=== PATIENT | male | born 1965 | race African-American/Black ===

== ENCOUNTER 2019-01-06 16:58 | Inpatient (IN) | payer MEDICAID, OTHER ==
[~2019-01-06] VITALS: Ht 188 cm; Wt 140.8 kg
[2019-01-06] MEDS ORDERED: DILTIAZEM HCL 25 MG/5 ML VIAL IV ONE (17:45)
[2019-01-06] MEDS ORDERED: ASPirin 81 mg TAB PO ONE (17:45)
[2019-01-06 17:50] LABS: Basophils # (auto) 0.1 uL; Basophils % (auto) 1.2 % (0.0-2.0); Eosinophils # (auto) 0 uL; Eosinophils % (auto) 0.8 % (0.0-7.0); Hematocrit 45.6 % (41.0-53.0); Hemoglobin 15.1 g/dL (13.5-17.5); Lymphocytes # (auto) 1.1 uL; Lymphocytes % (auto) 23.1 % (10.0-50.0); Mean Corpuscular Hemoglobin 28.3 pg (28.0-32.0); Mean Corpuscular Hgb Conc. 33.1 g/dL (32.0-36.0); Mean Corpuscular Volume 85.6 fL (80.0-100.0); Monocytes # (auto) 0.4 uL; Monocytes % (auto) 8.3 % (0.0-12.0); Neutrophils # (auto) 3.1 uL; Neutrophils % (auto) 66.6 % (37.0-80.0); Nucleated Red Blood Cells % 0.1 %; Platelet Count (auto) 256 10^3/uL (140-450); Red Blood Cells 5.32 10^6/uL (4.5-5.90); Red Cell Distribution Width 14.8 % (11.8-14.3); White Blood Cell 4.7 10^3/uL (4.4-10.8)
[2019-01-06 18:04] LABS: INR 0.99 (0.9-1.15); Partial Thromboplastin Time 22.2 sec (23.64-32.05)
[2019-01-06 18:07] LABS: Alanine Aminotransferase 50 U/L (16-61); Albumin 3.8 g/dL (3.4-5.0); Anion Gap 12 (5-15); Aspartate Aminotransferase 26 U/L (15-37); BUN/Creatinine Ratio 10.3; Blood Urea Nitrogen 12 mg/dL (7-18); Calcium 8.5 mg/dL (8.5-10.1); Carbon Dioxide 22 mmol/L (21-32); Chloride 110 mmol/L (98-107); GFR African American 85 mL/min; GFR Non-African American 70 mL/min; Glucose 122 mg/dL (74-106); Magnesium 2.2 mg/dL (1.6-2.6); Potassium 3.6 mmol/L (3.5-5.1); Sodium 144 mmol/L (136-145)
[2019-01-06 18:12] LABS: Alkaline Phosphatase 101 U/L (45-117); Bilirubin, Total 0.5 mg/dL (0.2-1.0)
[2019-01-06] MEDS ORDERED: HYDROcodone-ACET 5/325MG TAB PO PRN (20:00)
[2019-01-06] MEDS ORDERED: ONDANSETRON HCL 4 MG/2 ML VIAL IV PRN (20:00)
[2019-01-06] MEDS ORDERED: NITROGLYCERIN 0.4 MG SL TAB SL PRN (20:00)
[2019-01-06] MEDS ORDERED: MORPHINE SULF INJ 2 MG/ML SYRINGE 1ML IV PRN ×2 (20:00)
[2019-01-06] MEDS ORDERED: ACETAMINOPHEN 500 MG TAB PO PRN (20:00)
[2019-01-06] MEDS: METOPROLOL TARTRATE 25 MG TAB PO SCH (21:00)
[2019-01-06] MEDS: ATORVASTATIN 20 MG TAB PO SCH (22:14)
[2019-01-07] MEDS ORDERED: cloNIDine HCL 0.1 MG TAB PO ONE (05:15)
[2019-01-07 06:09] LABS: Basophils # (auto) 0.1 uL; Basophils % (auto) 1.9 % (0.0-2.0); Eosinophils # (auto) 0 uL; Eosinophils % (auto) 0.3 % (0.0-7.0); Hemoglobin 14.5 g/dL (13.5-17.5); Lymphocytes # (auto) 1.7 uL; Lymphocytes % (auto) 35.1 % (10.0-50.0); Mean Corpuscular Hemoglobin 28.5 pg (28.0-32.0); Mean Corpuscular Hgb Conc. 33.1 g/dL (32.0-36.0); Mean Corpuscular Volume 86.2 fL (80.0-100.0); Monocytes # (auto) 0.4 uL; Monocytes % (auto) 8.1 % (0.0-12.0); Neutrophils # (auto) 2.7 uL; Neutrophils % (auto) 54.6 % (37.0-80.0); Nucleated Red Blood Cells % 0.1 %; Platelet Count (auto) 246 10^3/uL (140-450); Red Cell Distribution Width 14.8 % (11.8-14.3)
[2019-01-07 06:13] LABS: Cholesterol 185 mg/dL (< 200); Triglycerides 102 mg/dL (< 150)
[2019-01-07 06:15] LABS: HDL Cholesterol 47 mg/dL (40-59); LDL Cholesterol 131 mg/dL (< 100)
[2019-01-07 06:17] LABS: Anion Gap 11 (5-15); BUN/Creatinine Ratio 12.2; Blood Urea Nitrogen 14 mg/dL (7-18); Calcium 8.4 mg/dL (8.5-10.1); Carbon Dioxide 23 mmol/L (21-32); Chloride 110 mmol/L (98-107); GFR African American 86 mL/min; GFR Non-African American 71 mL/min; Glucose 107 mg/dL (74-106); INR 1.04 (0.9-1.15); Partial Thromboplastin Time 30.9 sec (23.64-32.05); Potassium 3.7 mmol/L (3.5-5.1); Sodium 144 mmol/L (136-145)
[2019-01-07] MEDS: ASPirin-EC 81 mg tab PO SCH (09:11)
[2019-01-07] MEDS: METOPROLOL TARTRATE 25 MG TAB PO SCH (09:11)
[2019-01-07] MEDS: FAMOTIDINE 20 MG TAB PO SCH (09:11)
[2019-01-07] MEDS: LISINOPRIL 10 MG TAB PO SCH (09:12)
[2019-01-07] MEDS ORDERED: ENOXAPARIN SOD 100 MG/1 ML SYRINGE SC SCH (10:00)
[2019-01-07] MEDS: ENOXAPARIN SOD 150 MG/1 ML SYRINGE SC SCH ×2 (10:31→21:47)
[2019-01-07] MEDS: AMIODARONE HCL 200 MG TAB PO SCH ×2 (10:31→21:46)
[2019-01-07] MEDS: CARVEDILOL 3.125 MG TAB PO SCH ×2 (12:05→21:47)
--- NOTE | 2019-01-07 18:20 | NUR ---
Telemetry admit from ER JAMES LIEBERMAN admitted to Telemetry unit after SBAR received. Patient oriented to Sudha Faustin primary RN, unit, room, bed, and unit policies regarding patient care and visiting hours. Patient now on continuous telemetry monitoring, tele box #22 . Patient weighed by bed scale and encouraged to call if they need something. All questions and concerns addressed, patient verbalized understanding. Instructed patient on POC, fall precautions and to call for assistance. Patient verbalized understanding. Fall precautions in place with call light within reach.
[2019-01-07 18:38] VITALS: BP 134/99
--- NOTE | 2019-01-07 18:59 | NUR ---
Closing note patient resting in bed with even and unlabored respirations, no distress noted. Fall precautions in place with call light within reach.
--- NOTE | 2019-01-07 19:18 | NUR ---
Care endorsed to SAMMI Thompson.
--- NOTE | 2019-01-07 19:25 | NUR ---
OPENING NOTE Received report from SAMMI Rooney. Patient is A&O X's 4 with no s/s of distress. Patient reports no pain. Educated patient on POC and to use call light when in need of assistance. Patient verbalized understanding. Bed is in lowest/locked position with side rails up X's 2 and call light is within reach of patient. Will continue to monitor for changes and round hourly/PRN.
[2019-01-07] MEDS: ATORVASTATIN 20 MG TAB PO SCH (21:46)
[2019-01-07 22:00] VITALS: BP 134/99
--- NOTE | 2019-01-08 05:00 | NUR ---
PAGED HOSPITALIST Patient's blood pressure at 160/105.
[2019-01-08 05:21] VITALS: BP 160/105
[2019-01-08] MEDS ORDERED: cloNIDine HCL 0.1 MG TAB PO ONE (05:45)
--- NOTE | 2019-01-08 05:46 | NUR ---
RECEIVED CALL BACK FROM HOSPITALIST New orders received. Will continue patient care
--- NOTE | 2019-01-08 06:09 | NUR ---
ASSESSMENT BP 134/110 HR 87 O2 97 PATIENT REPORTS NO CHEST PAIN/PALPITATIONS, HE STATED THAT HE WAS MOVING AROUND A LOT AT THIS TIME WHEN NASIM CALLED THAT HEART RATE INCREASED TO ABOUT 130. WILL HOLD ONE TIME DOSE OF CLONIDINE FOR NOW, SINCE BLOOD PRESSURE IS AT 134/110. WILL CONTINUE TO MONITOR
--- NOTE | 2019-01-08 06:27 | NUR ---
HEART RATE Patient's heart rate increased to 130's when ambulating to the bathroom. Patient's heart rate decreased down to 110's and 90's when at rest. Will continue to monitor heart rate. Patient is asymptomatic Addendum: 01/08/19 at 0644 by KI NAIK RN RN oxygen level was also at 93% on room air when patient returned back into bed. Within a short time, it increased to 97% on room air with the heart rate slowly decreasing. Educated patient to use NC when ambulating to bathroom to determine if this can help prevent an increased HR. Patient verbalized understanding. NC at bedside and connected to O2 at 2L
[2019-01-08 08:00] VITALS: BP_SYST 147; BP_SYST 165; BP_DIAS 106; BP_DIAS 112
[2019-01-08] MEDS: AMIODARONE HCL 200 MG TAB PO SCH ×2 (09:45→21:45)
[2019-01-08] MEDS: CARVEDILOL 3.125 MG TAB PO SCH (09:45)
[2019-01-08] MEDS: ASPirin-EC 81 mg tab PO SCH (09:45)
[2019-01-08] MEDS: LISINOPRIL 10 MG TAB PO SCH (09:46)
[2019-01-08] MEDS: FAMOTIDINE 20 MG TAB PO SCH (09:46)
[2019-01-08] MEDS: ENOXAPARIN SOD 150 MG/1 ML SYRINGE SC SCH ×2 (09:47→21:46)
[2019-01-08] MEDS ORDERED: FUROSEMIDE 40 MG TAB PO SCH (10:00)
[2019-01-08] MEDS ORDERED: POTASSIUM CHL 20 Meq TABLET PO SCH (10:00)
[2019-01-08 12:00] VITALS: BP 134/93
[2019-01-08 17:00] VITALS: BP 147/85
--- NOTE | 2019-01-08 19:30 | NUR ---
Opening Shift Note: A&Ox4, resting in bed. Room air, pain level 0/10, and ambulates independently without assistive devices. Bed locked in lowest position, call light within reach, and side rails up x2. IV 20 left forearm IID inserted on 01/06/19. Skin intact. POC discussed and questions answered. Will continue to round prn.
[2019-01-08] MEDS: ATORVASTATIN 20 MG TAB PO SCH (21:45)
[2019-01-08] MEDS: CARVEDILOL 12.5 MG TAB PO SCH (21:45)
[2019-01-08 22:00] VITALS: BP 138/100
[2019-01-09 04:56] VITALS: BP 166/99
--- NOTE | 2019-01-09 05:01 | NUR ---
Page sent to station jailer hospitalist: Patient blood pressure is 166/99. No prn blood pressure medications available at this time. Page sent for antihypertensive.
[2019-01-09] MEDS: CARVEDILOL 12.5 MG TAB PO SCH ×2 (06:00→21:48)
--- NOTE | 2019-01-09 07:30 | NUR ---
Opening Shift Note Assumed care of patient, awake, alert, and oriented x4. No S/S of distress/SOB or pain. IV 20 gauge is in left forearm and is asymptomatic, intact, patent, and saline locked. Bed is locked and in lowest position and call light is within reach. Instructed on POC and to call for assist PRN, and patient verbalized understanding. Will continue to monitor for changes Q1hr and PRN.
[2019-01-09 09:00] VITALS: BP 167/108
[2019-01-09] MEDS ORDERED: LISINOPRIL 20 MG TAB PO SCH (10:00)
[2019-01-09] MEDS: FAMOTIDINE 20 MG TAB PO SCH (10:01)
[2019-01-09] MEDS: FUROSEMIDE 40 MG TAB PO SCH (10:01)
[2019-01-09] MEDS: POTASSIUM CHL 20 Meq TABLET PO SCH ×2 (10:01→21:48)
[2019-01-09] MEDS: ASPirin-EC 81 mg tab PO SCH (10:02)
[2019-01-09] MEDS: AMIODARONE HCL 200 MG TAB PO SCH ×2 (10:02→21:47)
[2019-01-09] MEDS: ENOXAPARIN SOD 150 MG/1 ML SYRINGE SC SCH ×2 (10:04→21:48)
[2019-01-09 12:54] LABS: BUN/Creatinine Ratio 12.1; Calcium 8.7 mg/dL (8.5-10.1); Potassium 3.4 mmol/L (3.5-5.1)
[2019-01-09 13:00] VITALS: BP 149/107
--- NOTE | 2019-01-09 14:00 | NUR ---
Dr. Sykes, Hospitalist, at bedside. New orders received.
[2019-01-09] MEDS ORDERED: DEXTROSE (50%) 50ML SYRG IV PRN (15:00)
[2019-01-09] MEDS ORDERED: hydrALAZINE HCL 20 MG/ML VL IV PRN (15:00)
[2019-01-09 17:00] VITALS: BP 145/90
[2019-01-09] MEDS: InsuLIN REG 1unit/0.01ml Soln (100units/ml) SC SCH ×2 (17:00→21:59)
[2019-01-09] MEDS: ACCU-CHEK COMFORT CURVE STRIP VI SCH ×2 (17:19→21:59)
--- NOTE | 2019-01-09 20:00 | NUR ---
Drug screen sample sent to lab via [employer] system.
[2019-01-09 21:10] LABS: Amphetamine Screen, Urine NEGATIVE (NEGATIVE); Barbiturate Scree,Urine NEGATIVE (NEGATIVE); Benzodiazephine Screen, Urine NEGATIVE (NEGATIVE); Cannabinoid Screen, Urine NEGATIVE (NEGATIVE); Cocaine Screen, Urine NEGATIVE (NEGATIVE); Opiate Scree,Urine NEGATIVE (NEGATIVE); Phencyclidine Screen, Urine NEGATIVE (NEGATIVE)
[2019-01-09 21:12] LABS: Alcohol, Urine < 3.0 mg/dL (0-5)
[2019-01-09] MEDS: SACUBITRIL-VALSARTAN 24mg/26mg TAB PO SCH (21:48)
[2019-01-09] MEDS: ATORVASTATIN 20 MG TAB PO SCH (21:48)
[2019-01-09 22:00] VITALS: BP 156/115
[2019-01-10 05:18] VITALS: BP 151/82
[2019-01-10 05:35] LABS: Anion Gap 9 (5-15); BUN/Creatinine Ratio 10.2; Blood Urea Nitrogen 13 mg/dL (7-18); Calcium 8.7 mg/dL (8.5-10.1); Carbon Dioxide 24 mmol/L (21-32); Chloride 111 mmol/L (98-107); GFR African American 76 mL/min; GFR Non-African American 63 mL/min; Glucose 94 mg/dL (74-106); Magnesium 2.4 mg/dL (1.6-2.6); Potassium 3.7 mmol/L (3.5-5.1); Sodium 144 mmol/L (136-145)
--- NOTE | 2019-01-10 06:00 | NUR ---
Previous High BP: 0500 BP was 151/82 and HR 79. BP take was 145/85 and HR 82. Will not give prn hydralazine at this time; parameter is SBP greater than 150. Will continue to trend values.
[2019-01-10] MEDS: ACCU-CHEK COMFORT CURVE STRIP VI SCH ×4 (06:04→21:52)
[2019-01-10] MEDS: InsuLIN REG 1unit/0.01ml Soln (100units/ml) SC SCH ×4 (06:04→21:52)
--- NOTE | 2019-01-10 07:30 | NUR ---
Opening Shift Note Assumed care of patient, awake, alert, and oriented x4. No S/S of distress/SOB or pain. IV is in the left forearm 20 gauge and is asymptomatic, intact, patent, and saline locked. Bed is locked and in the lowest position and call light is within reach. Instructed on POC and to call for assist PRN, and patient verbalized understanding. Will continue to monitor for changes Q1hr and PRN.
[2019-01-10 08:36] VITALS: BP 162/114
[2019-01-10] MEDS: AMIODARONE HCL 200 MG TAB PO SCH ×2 (09:55→21:42)
[2019-01-10] MEDS: FAMOTIDINE 20 MG TAB PO SCH (09:56)
[2019-01-10] MEDS: POTASSIUM CHL 20 Meq TABLET PO SCH ×2 (09:56→21:43)
[2019-01-10] MEDS: FUROSEMIDE 40 MG TAB PO SCH (09:56)
[2019-01-10] MEDS: ASPirin-EC 81 mg tab PO SCH (09:57)
[2019-01-10] MEDS: CARVEDILOL 12.5 MG TAB PO SCH ×2 (09:57→21:43)
[2019-01-10] MEDS: SACUBITRIL-VALSARTAN 24mg/26mg TAB PO SCH ×2 (09:57→21:43)
[2019-01-10] MEDS: ENOXAPARIN SOD 150 MG/1 ML SYRINGE SC SCH ×2 (09:58→21:44)
--- NOTE | 2019-01-10 10:30 | NUR ---
Dr. Sabillon, Park Interpreter, at bedside to consult patient. All questions and concerned addressed.
[2019-01-10] MEDS ORDERED: MORPHINE SULF INJ 2 MG/ML SYRINGE 1ML IV PRN ×2 (11:30)
[2019-01-10] MEDS ORDERED: hydrALAZINE HCL 20 MG/ML VL IV PRN (11:30)
[2019-01-10] MEDS ORDERED: HYDROcodone-ACET 5/325MG TAB PO PRN (11:30)
--- NOTE | 2019-01-10 12:00 | NUR ---
Dr. Sykes, Hospitalist, at bedside.
--- NOTE | 2019-01-10 12:52 | NUR ---
Nutrition Assessment Notes please see attached link for complete assessment Est. Needs ABW [id number] kcal (17-20 kcal/kgBW), 117-128 gms pro (1.0-1.1 gms/kgBW). Will continue to monitor pertinent labs and reassess nutrient need prn Addendum: 01/10/19 at [address] Amended: Links added.
[2019-01-10 13:00] VITALS: BP 150/89
[2019-01-10 16:55] VITALS: BP 124/77
--- NOTE | 2019-01-10 19:15 | NUR ---
Endorsed care to retail shift supervisor RNPaulina.
--- NOTE | 2019-01-10 19:45 | NUR ---
Opening Shift Note: A&Ox4, resting in bed. Room air, pain level 0/10, and ambulates independently without assistive devices. Bed locked in lowest position, call light within reach, and side rails up x2. IV 20 left forearm IID inserted on 01/06/19. Skin intact. POC discussed and questions answered. Pending C with Dr. Sabillon on 01/11/19. NPO at 0000. Will continue to round prn.
--- NOTE | 2019-01-10 20:20 | NUR ---
Consents for [facility] explained and signed by patient.
[2019-01-10] MEDS: ATORVASTATIN 20 MG TAB PO SCH (21:44)
[2019-01-10 22:00] VITALS: BP 144/89
--- NOTE | 2019-01-10 23:25 | NUR ---
urine specimen for UA sent to lab via [employer] system
[2019-01-10 23:46] LABS: Urine Bacteria FEW /hpf (None Seen); Urine Blood Negative /uL (Negative); Urine Hyaline Cast FEW /lpf (0 - 2); Urine Mucus FEW (None Seen); Urine Specific Gravity 1.019 (1.001-1.035); Urine WBC <1 /hpf (0 - 3)
--- NOTE | 2019-01-11 | NUR ---
NPO for LHC with Dr. Sabillon 01/11/19
[2019-01-11 04:45] VITALS: BP 156/92
[2019-01-11 05:53] LABS: Basophils # (auto) 0 uL; Basophils % (auto) 0.8 % (0.0-2.0); Eosinophils # (auto) 0 uL; Eosinophils % (auto) 1.2 % (0.0-7.0); Hematocrit 46.2 % (41.0-53.0); Lymphocytes # (auto) 1.6 uL; Lymphocytes % (auto) 40.4 % (10.0-50.0); Mean Corpuscular Hemoglobin 28.2 pg (28.0-32.0); Mean Corpuscular Hgb Conc. 32.6 g/dL (32.0-36.0); Mean Corpuscular Volume 86.7 fL (80.0-100.0); Monocytes # (auto) 0.4 uL; Monocytes % (auto) 10.1 % (0.0-12.0); Neutrophils # (auto) 1.8 uL; Neutrophils % (auto) 47.5 % (37.0-80.0); Nucleated Red Blood Cells % 0.1 %; Platelet Count (auto) 239 10^3/uL (140-450); Red Blood Cells 5.32 10^6/uL (4.5-5.90); Red Cell Distribution Width 14.5 % (11.8-14.3); White Blood Cell 3.9 10^3/uL (4.4-10.8)
[2019-01-11 06:12] LABS: INR 1.1 (0.9-1.15); Partial Thromboplastin Time 37.9 sec (23.64-32.05)
[2019-01-11] MEDS: InsuLIN REG 1unit/0.01ml Soln (100units/ml) SC SCH ×4 (06:12→22:00)
[2019-01-11] MEDS: ACCU-CHEK COMFORT CURVE STRIP VI SCH ×4 (06:13→22:08)
[2019-01-11 06:16] LABS: Anion Gap 11 (5-15); Blood Urea Nitrogen 16 mg/dL (7-18); Calcium 8.3 mg/dL (8.5-10.1); Carbon Dioxide 22 mmol/L (21-32); Chloride 110 mmol/L (98-107); GFR African American 72 mL/min; GFR Non-African American 60 mL/min; Glucose 86 mg/dL (74-106); Potassium 3.8 mmol/L (3.5-5.1); Sodium 143 mmol/L (136-145)
[2019-01-11] MEDS: ENOXAPARIN SOD 150 MG/1 ML SYRINGE SC SCH ×2 (07:34→22:08)
--- NOTE | 2019-01-11 07:49 | NUR ---
Opening Shift Note Assumed care of patient, awake, alert, and oriented x4. No S/S of distress/SOB or pain. IV is in left forearm 20 gauge and is asymptomatic, intact, patent, and saline locked. Bed is locked and in lowest position and call light is within reach. Instructed on POC and to call for assist PRN, and patient verbalized understanding. Will continue to monitor for changes Q1hr and PRN.
[2019-01-11 09:00] VITALS: BP 161/102
--- NOTE | 2019-01-11 09:05 | NUR ---
Patient taken to [facility] via hospital bed; no distress noted at time of departure.
[2019-01-11] MEDS: FUROSEMIDE 40 MG TAB PO SCH (10:00)
[2019-01-11] MEDS: ASPirin-EC 81 mg tab PO SCH (10:00)
[2019-01-11] MEDS: SACUBITRIL-VALSARTAN 24mg/26mg TAB PO SCH ×2 (10:00→22:07)
[2019-01-11] MEDS: CARVEDILOL 12.5 MG TAB PO SCH ×2 (10:00→22:07)
[2019-01-11] MEDS: FAMOTIDINE 20 MG TAB PO SCH (10:00)
[2019-01-11] MEDS: AMIODARONE HCL 200 MG TAB PO SCH ×2 (10:00→22:07)
[2019-01-11] MEDS: POTASSIUM CHL 20 Meq TABLET PO SCH ×2 (10:00→22:08)
[2019-01-11] MEDS ORDERED: IOHEXOL 350 MG/ML 100ML IJ ONE (10:12)
[2019-01-11] MEDS ORDERED: LIDOCAINE 2%HCL (LOCAL ANESTH.) INJ 20ML MDV ONE ×2 (10:12→10:51)
[2019-01-11] MEDS ORDERED: SODIUM CHL 0.9% 0 ML ONE (10:16)
[2019-01-11] MEDS ORDERED: fentaNYL CITRATE 100 MCG/2 ML VL ONE (10:16)
[2019-01-11] MEDS ORDERED: MIDAZOLAM HCL 1MG/1ML-2 ML VIAL ONE (10:16)
[2019-01-11] MEDS ORDERED: ANGIOMAX 250 MG VIAL IV ONE (10:16)
--- NOTE | 2019-01-11 12:00 | NUR ---
Spoke with Juan, from [facility]; he reports he will be here in the morning to consult the patient before discharge.
--- NOTE | 2019-01-11 12:09 | NUR ---
Patient returned from clam bed laborer via hospital bed, and is lying flat, and supine until 1300. Dressing on right groin is clean dry and intact. No distress noted at this time. Will continue to monitor Q1.
[2019-01-11 13:00] VITALS: BP 149/78
--- NOTE | 2019-01-11 15:40 | NUR ---
Dr. Avalos, Hospitalist, at bedside.
[2019-01-11 16:59] VITALS: BP 135/95
--- NOTE | 2019-01-11 19:50 | NUR ---
Opening Shift Note Assumed care of patient. Awake, alert, and oriented x4. Currently on room air with No S/S of distress/SOB or pain. IV is in left forearm 20 gauge and is asymptomatic, intact, patent, and saline locked. Patient is able to ambulate independently without the use of assistive devices. Bed is locked and in lowest position with side rails up x2 and call light is within reach. Instructed on POC and to call for assist PRN. Patient verbalized understanding. Will continue to monitor for changes PRN.
[2019-01-11 20:00] VITALS: BP 101/67
[2019-01-11 22:00] VITALS: BP 136/82
[2019-01-11] MEDS: ATORVASTATIN 20 MG TAB PO SCH (22:08)
--- NOTE | 2019-01-12 04:42 | NUR ---
BLOOD PRESSURE DENTIST [facility] reported BP of 160/88. Blood pressure rechecked and is 150/89. Will continue to monitor for changes PRN.
[2019-01-12 05:33] LABS: Basophils # (auto) 0 uL; Basophils % (auto) 0.7 % (0.0-2.0); Eosinophils # (auto) 0 uL; Eosinophils % (auto) 0.7 % (0.0-7.0); Hematocrit 47.8 % (41.0-53.0); Hemoglobin 15.8 g/dL (13.5-17.5); Lymphocytes # (auto) 1.5 uL; Lymphocytes % (auto) 35.5 % (10.0-50.0); Mean Corpuscular Hemoglobin 28.5 pg (28.0-32.0); Mean Corpuscular Volume 86.4 fL (80.0-100.0); Monocytes # (auto) 0.5 uL; Monocytes % (auto) 11.2 % (0.0-12.0); Neutrophils # (auto) 2.1 uL; Neutrophils % (auto) 51.9 % (37.0-80.0); Nucleated Red Blood Cells % 0.1 %; Platelet Count (auto) 228 10^3/uL (140-450); Red Blood Cells 5.54 10^6/uL (4.5-5.90); Red Cell Distribution Width 14.5 % (11.8-14.3); White Blood Cell 4.1 10^3/uL (4.4-10.8)
[2019-01-12 05:47] LABS: BUN/Creatinine Ratio 10.2; Calcium 8.5 mg/dL (8.5-10.1); Potassium 4.1 mmol/L (3.5-5.1)
[2019-01-12] MEDS: ACCU-CHEK COMFORT CURVE STRIP VI SCH ×3 (06:48→21:26)
[2019-01-12] MEDS: InsuLIN REG 1unit/0.01ml Soln (100units/ml) SC SCH ×3 (06:48→17:00)
--- NOTE | 2019-01-12 07:45 | NUR ---
Opening Shift Note Assumed care of patient, awake and alert. No S/S of distress/SOB or pain. Instructed on POC and to call for assist PRN, will continue to monitor for changes Q1hr and PRN.
[2019-01-12 08:00] VITALS: BP 145/92
[2019-01-12 09:00] VITALS: BP 145/92
[2019-01-12] MEDS: FUROSEMIDE 40 MG TAB PO SCH (10:29)
[2019-01-12] MEDS: SACUBITRIL-VALSARTAN 24mg/26mg TAB PO SCH ×2 (10:29→21:26)
[2019-01-12] MEDS: ASPirin-EC 81 mg tab PO SCH (10:29)
[2019-01-12] MEDS: CARVEDILOL 12.5 MG TAB PO SCH ×2 (10:30→21:44)
[2019-01-12] MEDS: FAMOTIDINE 20 MG TAB PO SCH (10:31)
[2019-01-12] MEDS: POTASSIUM CHL 20 Meq TABLET PO SCH ×2 (10:32→21:44)
[2019-01-12] MEDS: AMIODARONE HCL 200 MG TAB PO SCH ×2 (10:32→21:26)
[2019-01-12] MEDS: ENOXAPARIN SOD 150 MG/1 ML SYRINGE SC SCH ×2 (10:33→21:44)
--- NOTE | 2019-01-12 10:58 | NUR ---
Zoll life vest personal Zoll life vest personal at bedside to discuss current POC.
--- NOTE | 2019-01-12 11:52 | NUR ---
Zoll life vest update Received call from Anai from [employer]. Per Anai Zoll life vest personal will be at hospital at approx 1500 to fit patient.
[2019-01-12 13:53] VITALS: BP 142/95
[2019-01-12 16:38] VITALS: BP 141/86
--- NOTE | 2019-01-12 17:47 | NUR ---
Zoll life vest update Zoll life vest personal at bedside fitting patient for vest
--- NOTE | 2019-01-12 18:38 | NUR ---
[employer] DELIVERED ZOLL VEST PERSONAL NINO AT BEDSIDE. FITTED AND PROVIDED ZOLL VEST TO PATIENT WITH INFORMATION.
[2019-01-12 18:45] VITALS: BP 141/86
--- NOTE | 2019-01-12 19:30 | NUR ---
Opening Shift Note Assumed care of patient, awake and alert. Currently on room air with No S/S of distress/SOB or pain. Patient is able to ambulate independently without the use of assistive devices. Zoll life vest is in place. 20 gauge Iv to left forearm is intact and patent. Flushed with 10ml NS. Patient tolerated well. Instructed on POC and to call for assist PRN. Bed is in lowest locked position with side rails up x2. Call pearson is within reach. Will continue to monitor for changes Q1hr and PRN.
[2019-01-12] MEDS: ATORVASTATIN 20 MG TAB PO SCH (21:44)
--- NOTE | 2019-01-12 21:46 | NUR ---
Regular Discharge Please follow up with your primary care physician Dr. Moncada Discharge education provided. All questions answered. IV removed, catheter is intact. Pressure dressing applied. Tele box removed and ID bands removed. Patient is stable with no s/s of pain or distress at time of departure. Pt ambulated independently off unit.
== END 2019-01-12 21:43 | disposition home or self-care (01) | DRG 190 ==
LOC: ER 17:07 → TELE 17:08 → TELE-WESTW 01-07 18:17
PROVIDERS: ADMIT Nurse Practitioner Family; ATTEND Internal Medicine Pulmonary Disease
PROC: B2111ZZ Fluoroscopy of Multiple Coronary Arteries using Low Osmolar Contrast (ICD-10-PCS; principal; 2019-01-11)
PROC: 4A023N7 Measurement of Cardiac Sampling and Pressure, Left Heart, Percutaneous Approach (ICD-10-PCS; 2019-01-11)
PROC: B2151ZZ Fluoroscopy of Left Heart using Low Osmolar Contrast (ICD-10-PCS; 2019-01-11)
DX: I21.A1 Myocardial infarction type 2 (principal); I50.21 Acute systolic (congestive) heart failure; N17.9 Acute kidney failure, unspecified; E11.22 Type 2 diabetes mellitus with diabetic chronic kidney disease; E66.01 Morbid (severe) obesity due to excess calories; I48.92 Unspecified atrial flutter; I48.0 Paroxysmal atrial fibrillation; I08.0 Rheumatic disorders of both mitral and aortic valves; I13.0 Hypertensive heart and chronic kidney disease with heart failure and stage 1 through stage 4 chronic kidney disease, or unspecified chronic kidney disease; N18.9 Chronic kidney disease, unspecified; E78.5 Hyperlipidemia, unspecified; Z82.49 Family history of ischemic heart disease and other diseases of the circulatory system; Z68.39 Body mass index [BMI] 39.0-39.9, adult
CPT/HCPCS: 36415; 71046; 80048; 80053; 80061; 80307; 81001; 82962; 83036; 83735; 83880; 84443; 84484; 85025; 85610; 85730; 86141; 86850; 86900; 86901; 93005; 93306; 93458; 94761; 96374; G0378; J2250

== ENCOUNTER → 2019-01-25 | Outpatient (CLI) | payer MEDICAID ==
[2019-01-25 12:20] LABS: Basophils # (auto) 0.1 uL; Basophils % (auto) 1.5 % (0.0-2.0); Eosinophils # (auto) 0 uL; Eosinophils % (auto) 1.1 % (0.0-7.0); Hematocrit 45.4 % (41.0-53.0); Hemoglobin 15.2 g/dL (13.5-17.5); Lymphocytes # (auto) 1.5 uL; Lymphocytes % (auto) 43.4 % (10.0-50.0); Mean Corpuscular Hemoglobin 28.9 pg (28.0-32.0); Mean Corpuscular Hgb Conc. 33.4 g/dL (32.0-36.0); Mean Corpuscular Volume 86.4 fL (80.0-100.0); Monocytes # (auto) 0.2 uL; Neutrophils # (auto) 1.6 uL; Nucleated Red Blood Cells % 0.2 %; Platelet Count (auto) 296 10^3/uL (140-450); Red Blood Cells 5.26 10^6/uL (4.5-5.90); Red Cell Distribution Width 14.7 % (11.8-14.3); White Blood Cell 3.5 10^3/uL (4.4-10.8)
[2019-01-25 12:34] LABS: Urine Bacteria NONE SEEN /hpf (None Seen); Urine Blood Negative /uL (Negative); Urine Mucus FEW (None Seen); Urine Specific Gravity 1.024 (1.001-1.035); Urine WBC 2 /hpf (0 - 3)
[2019-01-25 12:42] LABS: Calcium 8.9 mg/dL (8.5-10.1)
[2019-01-25 12:45] LABS: Protein, Urine 18.1 mg/dL (0.0-11.9)
[2019-01-25 12:47] LABS: BUN/Creatinine Ratio 12.3
[2019-01-25 13:06] LABS: Micro Albumin 35.1 mg/L (0-30.0)
== END | disposition home or self-care (01) ==
LOC: LAB 11:52
PROVIDERS: ATTEND Internal Medicine Nephrology
DX: I11.0 Hypertensive heart disease with heart failure (principal); I50.9 Heart failure, unspecified; E11.9 Type 2 diabetes mellitus without complications
CPT/HCPCS: 36415; 80048; 80061; 81001; 82043; 82088; 82570; 83036; 83835; 84156; 84244; 84443; 85025

== ENCOUNTER → 2019-03-11 | Outpatient (CLI) | payer MEDICAID ==
[2019-03-11 15:48] LABS: Protein, Urine 5.8 mg/dL (0.0-11.9)
== END | disposition home or self-care (01) ==
LOC: LAB 14:39
PROVIDERS: ATTEND Internal Medicine Nephrology
DX: I13.2 Hypertensive heart and chronic kidney disease with heart failure and with stage 5 chronic kidney disease, or end stage renal disease (principal); I50.9 Heart failure, unspecified; N18.6 End stage renal disease
CPT/HCPCS: 36415; 82570; 84132; 84156; 84439; 84443

== ENCOUNTER → 2019-08-31 | Outpatient (CLI) | payer BC, MEDICAID ==
[~2019-08-31] MED LIST: AMIO200T33 PO; ATOR40TA52 PO; CARV25TA55 PO; FURO20TA3 PO; LOSA25TA38 PO; RIVA20TA PO; SPIR25TA8 PO
[2019-08-31 14:02] LABS: Basophils # (auto) 0 10 ^3/uL (0-0.2); Eosinophils # (auto) 0.1 10 ^3/uL (0-0.8); Eosinophils % (auto) 2.1 % (0.0-7.0); Hematocrit 40.2 % (41.0-53.0); Hemoglobin 13.2 g/dL (13.5-17.5); Lymphocytes # (auto) 1.1 10 ^3/uL (0.4-5.4); Lymphocytes % (auto) 32.6 % (10.0-50.0); Mean Corpuscular Hemoglobin 28.8 pg (28.0-32.0); Mean Corpuscular Hgb Conc. 32.9 g/dL (32.0-36.0); Mean Corpuscular Volume 87.6 fL (80.0-100.0); Monocytes # (auto) 0.3 10 ^3/uL (0-1.3); Monocytes % (auto) 7.6 % (0.0-12.0); Neutrophils # (auto) 1.9 10 ^3/uL (1.6-8.6); Neutrophils % (auto) 56.7 % (37.0-80.0); Nucleated Red Blood Cells % 0.1 %; Platelet Count (auto) 219 10^3/uL (140-450); Red Blood Cells 4.59 10^6/uL (4.5-5.90); Red Cell Distribution Width 14.2 % (11.8-14.3); White Blood Cell 3.4 10^3/uL (4.4-10.8)
[2019-08-31 14:19] LABS: Albumin 3.7 g/dL (3.4-5.0); Calcium 8.9 mg/dL (8.5-10.1)
[2019-08-31 14:22] LABS: BUN/Creatinine Ratio 15.4; Bilirubin, Total 0.4 mg/dL (0.2-1.0); Total Protein 7.7 g/dL (6.4-8.2)
== END | disposition home or self-care (01) ==
LOC: LAB 13:44
PROVIDERS: ATTEND Internal Medicine Nephrology
DX: I13.0 Hypertensive heart and chronic kidney disease with heart failure and stage 1 through stage 4 chronic kidney disease, or unspecified chronic kidney disease (principal); N18.3 Chronic kidney disease, stage 3 (moderate); I50.20 Unspecified systolic (congestive) heart failure
CPT/HCPCS: 36415; 80053; 85025

== ENCOUNTER 2019-09-03 10:12 | Day surgery (SDC) | payer BC, MEDICAID ==
[2019-08-31 14:03] LABS: Basophils # (auto) 0 10 ^3/uL (0-0.2); Basophils % (auto) 1.1 % (0.0-2.0); Eosinophils # (auto) 0.1 10 ^3/uL (0-0.8); Eosinophils % (auto) 2.1 % (0.0-7.0); Hemoglobin 13.2 g/dL (13.5-17.5); Lymphocytes # (auto) 1.2 10 ^3/uL (0.4-5.4); Lymphocytes % (auto) 34.9 % (10.0-50.0); Mean Corpuscular Hgb Conc. 33.1 g/dL (32.0-36.0); Mean Corpuscular Volume 87.9 fL (80.0-100.0); Monocytes # (auto) 0.3 10 ^3/uL (0-1.3); Monocytes % (auto) 8.7 % (0.0-12.0); Neutrophils # (auto) 1.8 10 ^3/uL (1.6-8.6); Neutrophils % (auto) 53.2 % (37.0-80.0); Nucleated Red Blood Cells % 0.1 %; Platelet Count (auto) 212 10^3/uL (140-450); Red Blood Cells 4.56 10^6/uL (4.5-5.90); Red Cell Distribution Width 14.2 % (11.8-14.3); White Blood Cell 3.3 10^3/uL (4.4-10.8)
[2019-08-31 14:20] LABS: INR 1.06 (0.9-1.15); Partial Thromboplastin Time 30.5 sec (23.64-32.05)
[~2019-09-03] VITALS: Ht 188 cm; Wt 135.6 kg
[2019-09-03] MEDS ORDERED: diphenhdrAMINE HCL 50 MG/1 ML VL ONE (10:31)
[2019-09-03] MEDS ORDERED: SODIUM CHLORIDE LOCK 10 ML ONE (10:31)
[2019-09-03] MEDS: MIDAZOLAM HCL 5 MG/ML-1ML VIAL ONE ×2 (11:08→11:15)
[2019-09-03] MEDS: fentaNYL CITRATE 100 MCG/2 ML VL ONE ×2 (11:08→11:15)
[2019-09-03 12:05] VITALS: BP 145/88
== END 2019-09-03 12:17 | disposition home or self-care (01) ==
LOC: GI 10:12
PROVIDERS: ATTEND Internal Medicine Gastroenterology
DX: Z12.11 Encounter for screening for malignant neoplasm of colon (principal); K64.8 Other hemorrhoids; I48.91 Unspecified atrial fibrillation; E66.9 Obesity, unspecified; Z79.899 Other long term (current) drug therapy; Z98.890 Other specified postprocedural states; Z79.01 Long term (current) use of anticoagulants; Z68.38 Body mass index [BMI] 38.0-38.9, adult
CPT/HCPCS: 36415; 45378; 85025; 85610; 85730; 93005; J1200; J2250; J3010; 99152; 99153

== ENCOUNTER → 2020-08-21 | Outpatient (CLI) | payer BC, MEDICAID ==
[2020-08-21 13:50] LABS: Basophils # (auto) 0 10 ^3/uL (0-0.2); Basophils % (auto) 0.9 % (0.0-2.0); Eosinophils # (auto) 0.1 10 ^3/uL (0-0.8); Eosinophils % (auto) 1.5 % (0.0-7.0); Hematocrit 37.1 % (41.0-53.0); Hemoglobin 12.4 g/dL (13.5-17.5); Lymphocytes # (auto) 1.3 10 ^3/uL (0.4-5.4); Lymphocytes % (auto) 31.9 % (10.0-50.0); Mean Corpuscular Hemoglobin 29.4 pg (28.0-32.0); Mean Corpuscular Hgb Conc. 33.5 g/dL (32.0-36.0); Mean Corpuscular Volume 87.8 fL (80.0-100.0); Monocytes # (auto) 0.4 10 ^3/uL (0-1.3); Monocytes % (auto) 9.1 % (0.0-12.0); Neutrophils # (auto) 2.3 10 ^3/uL (1.6-8.6); Neutrophils % (auto) 56.6 % (37.0-80.0); Nucleated Red Blood Cells % 0.1 %; Platelet Count (auto) 240 10^3/uL (140-450); Red Blood Cells 4.23 10^6/uL (4.5-5.90); Red Cell Distribution Width 14.4 % (11.8-14.3)
[2020-08-21 13:59] LABS: Urine Bacteria NONE SEEN /hpf (None Seen); Urine Blood Negative /uL (Negative); Urine Specific Gravity 1.018 (1.001-1.035); Urine WBC 1 /hpf (0 - 3)
[2020-08-21 14:05] LABS: Albumin 3.8 g/dL (3.4-5.0); Potassium 3.9 mmol/L (3.5-5.1)
[2020-08-21 14:08] LABS: BUN/Creatinine Ratio 15.2; Bilirubin, Total 0.4 mg/dL (0.2-1.0); Total Protein 7.8 g/dL (6.4-8.2)
== END | disposition home or self-care (01) ==
LOC: LAB 13:21
PROVIDERS: ATTEND Internal Medicine Nephrology
DX: I13.0 Hypertensive heart and chronic kidney disease with heart failure and stage 1 through stage 4 chronic kidney disease, or unspecified chronic kidney disease (principal); N18.30 Chronic kidney disease, stage 3 unspecified; I50.9 Heart failure, unspecified
CPT/HCPCS: 36415; 80053; 81001; 85025

== ENCOUNTER → 2021-08-09 | Outpatient (CLI) | payer MEDICAID ==
[2021-08-09 10:51] LABS: Basophils # (auto) 0.1 10 ^3/uL (0-0.2); Basophils % (auto) 1.6 % (0.0-2.0); Eosinophils # (auto) 0.2 10 ^3/uL (0-0.8); Eosinophils % (auto) 5.4 % (0.0-7.0); Hematocrit 38.5 % (41.0-53.0); Hemoglobin 12.7 g/dL (13.5-17.5); Lymphocytes # (auto) 1.4 10 ^3/uL (0.4-5.4); Lymphocytes % (auto) 34.4 % (10.0-50.0); Mean Corpuscular Hemoglobin 29.2 pg (28.0-32.0); Mean Corpuscular Volume 88.6 fL (80.0-100.0); Monocytes # (auto) 0.4 10 ^3/uL (0-1.3); Monocytes % (auto) 9.4 % (0.0-12.0); Neutrophils # (auto) 2.1 10 ^3/uL (1.6-8.6); Neutrophils % (auto) 49.2 % (37.0-80.0); Nucleated Red Blood Cells % 0.2 %; Red Blood Cells 4.34 10^6/uL (4.5-5.90); Red Cell Distribution Width 14.3 % (11.8-14.3); White Blood Cell 4.2 10^3/uL (4.4-10.8)
[2021-08-09 11:13] LABS: Urine Bacteria NONE SEEN /hpf (None Seen); Urine Blood Negative /uL (Negative); Urine Specific Gravity 1.009 (1.001-1.035); Urine WBC <1 /hpf (0 - 3)
[2021-08-09 11:20] LABS: Albumin 3.4 g/dL (3.4-5.0); BUN/Creatinine Ratio 11.7; Calcium 8.7 mg/dL (8.5-10.1)
[2021-08-09 11:22] LABS: Bilirubin, Total 0.3 mg/dL (0.2-1.0); Total Protein 7.3 g/dL (6.4-8.2)
[2021-08-09 12:35] LABS: Creatinine, Urine 72 mg/dL (30.0-125.0); Protein, Urine < 5.0 mg/dL (0.0-11.9)
== END | disposition home or self-care (01) ==
LOC: LAB 10:32
PROVIDERS: ATTEND Internal Medicine Nephrology
DX: I11.0 Hypertensive heart disease with heart failure (principal); I50.9 Heart failure, unspecified
CPT/HCPCS: 36415; 80053; 81001; 82570; 83036; 84156; 84439; 84443; 85025

== ENCOUNTER 2025-03-15 09:52 | Emergency (ER) | payer BC, MEDICAID, OTHER ==
[~2025-03-15] VITALS: Ht 188 cm; Wt 104.5 kg
[~2025-03-15 09:52] MED LIST changes: +LOSA-533 PO; -LOSA25TA38 PO
[2025-03-15 09:55] VITALS: TEMP 98.9
--- NOTE | 2025-03-15 10:27 | ED.PDOC ---
History of Present Illness HPI Comments 60 year old male presents to the ED with a chief complaint of hypertension onset today (03/15/25). Patient went to see PCP, BP was 215/110, sent to the ED. Patient has not seen PCP for a few years, was off his medication. Patient states he currently has no complaints. PMHx HTN. Denies any fever, chills, nausea, vomiting, diarrhea, abdominal pain, chest pain, shortness of breath, blurred vision, headache, dizziness, numbness/tingling, weakness. No other symptoms or modifying factors present at this time. Chief Complaint: High Blood Pressure Time Seen by MD: 10:15 Primary Care Provider: TREK Reviewed Notes: Medications, Allergies Allergies: Coded Allergies: NO KNOWN ALLERGIES (Unverified , 08/31/19) Home Meds Reported Medications Atorvastatin Calcium (ATORVASTATIN CALCIUM) 40 Mg Tab, 1 TAB PO DAILY, #30 TAB 5 Refills 08/31/19 Spironolactone (Spironolactone) 25 Mg Tab, 1 TAB PO DAILY, #90 TAB 1 Refill 08/31/19 Losartan Potassium (Losartan Potassium) 25 Mg Tab, 25 MG PO DAILY for 30 Days, MG 08/31/19 Furosemide (Furosemide) 20 Mg Tab, 20 MG PO DAILY for 30 Days, MG 08/31/19 Carvedilol (Carvedilol) 25 Mg Tab, 25 MG PO Q12HR for 30 Days, MG 20 Amiodarone Hcl (Amiodarone Hcl) 200 Mg Tab, 200 MG PO Q12HR for 30 Days 08/31/19 Rivaroxaban (XARELTO) 20 Mg Tab, 1 TAB PO QPM, #30 TAB 5 Refills 08/31/19 Information Source: Patient Mode of Arrival: Ambulatory Severity: Moderate Timing: Hours Duration: Since onset Prehospital treatment: None Past Medical History PAST MEDICAL HISTORY: HTN Surgical History: Denies all surgeries Family History Family History: No family hx of HTN Social History Smoker: Non-Smoker Alcohol: Rarely Drugs: Denies Drug Use Lives In: Home Constitutional: denies: chills, diaphoresis, fatigue, fever, malaise, sweats, weakness, others EENTM: denies: blurred vision, double vision, ear bleeding, ear discharge, ear drainage, ear pain, ear ringing, eye pain, eye redness, hearing loss, mouth pain, mouth swelling, nasal discharge, nose bleeding, nose congestion, nose pain, photophobia, tearing, throat pain, throat swelling, voice changes, others Respiratory: denies: cough, hemoptysis, orthopnea, SOB at rest, shortness of breath, SOB with excertion, stridor, wheezing, others Cardiovascular: reports: others (hypertension); denies: chest pain, dizzy spells, diaphoresis, Dyspnea on exertion, edema, irregular heart beat, left arm pain, lightheadedness, palpitations, PND, syncope Gastrointestinal: denies: abdomen distended, abdominal pain, blood streaked bowels, constipated, diarrhea, dysphagia, difficulty swallowing, hematemesis, melena, nausea, poor appetite, poor fluid intake, rectal bleeding, rectal pain, vomiting, others Genitourinary: denies: burning, dysuria, flank pain, frequency, hematuria, incontinence, penile discharge, penile sore, pain, testicle pain, testicle swelling, urgency, others Neurological: denies: dizziness, fainting, headache, left sided numbness, left sided weakness, numbness, paresthesia, pre-existing deficit, right sided numbness, right sided weakness, seizure, speech problems, tingling, tremors, weakness, others Musculoskeletal: denies: back pain, gout, joint pain, joint swelling, muscle pain, muscle stiffness, neck pain, others Integumetry: denies: bruises, change in color, change in hair/nails, dryness, laceration, lesions, lumps, rash, wounds, others Allergic/Immunocompromised: denies: Difficulty Healing, Frequent Infections, Hives, Itching, others Hematologic/Lymphatic: denies: anemia, blood clots, easy bleeding, easy bruising, swollen glands, others Endocrine: denies: excessive hunger, excessive sweating, excessive thirst, excessive urination, flushing, intolerance to cold, intolerance to heat, unexplained weight gain, unexplained weight loss, others Psychiatric: denies: anxiety, bipolar disorder, depression, hopeless, panic disorder, schizophrenia, sleepless, suicidal, others All Other Systems: Reviewed and Negative Physical Exam General Appearance: Moderate Distress, Normal HEENT: Normal ENT Inspection, Pharynx Normal, TMs Normal Neck: Full Range of Motion, Non-Tender, Normal, Normal Inspection Respiratory: Chest Non-Tender, Lungs Clear, No Accessory Muscle Use, No Respiratory Distress, Normal Breath Sounds Cardiovascular: No Edema, No JVD, No Murmur, No Gallop, Normal Peripheral Pulses, Regular Rate/Rhythm Breast Exam: Deferred Gastrointestinal: No Organomegaly, Non Tender, No Pulsatile Mass, Normal Bowel Sounds, Soft Genitalia: Deferred Pelvic: Deferred Rectal: Deferred Extremities: No calf tenderness, Normal capillary refill, Normal inspection, Normal range of motion, Non-tender, No pedal edema Musculoskeletal : Apperance: Normal Neurologic: Alert, application integration specialist II-XII nml as Tested, No Motor Deficits, Normal Affect, Normal Mood, No Sensory Deficits Cerebellar Function: Normal Reflexes: Normal Skin: Dry, Normal Color, Warm Peripheral Pulses: 3+ Radial (R), 3+ Radial (L) Lymphatic: No Adenopathy Was a procedure done? Was a procedure done?: No Differential Dx Considerations may include: Anemia Electrolyte imbalance X-Ray, Labs, Meds, VS Vital Signs Date Time Temp Pulse Resp B/P (MAP) Pulse Ox O2 Delivery O2 Flow Rate FiO2 03/15/25 12:22 154/86 03/15/25 10:55 187/102 03/15/25 10:49 64 18 187/102 (130) 97 03/15/25 10:49 64 18 97 Room Air 03/15/25 09:55 98.9 78 17 180/87 96 98.9 Lab Test 03/15/25 10:35 Range/Units White Blood Count 4.0 L 4.4-10.8 10^3/uL Red Blood Count 5.22 4.5-5.90 10^6/uL Hemoglobin 14.6 13.5-17.5 g/dL Hematocrit 43.3 41.0-53.0 % Mean Corpuscular Volume 82.9 80.0-100.0 fL Mean Corpuscular Hemoglobin 28.0 28.0-32.0 pg Mean Corpuscular Hemoglobin Concent 33.8 32.0-36.0 g/dL Red Cell Distribution Width 14.6 H 11.8-14.3 % Platelet Count 291 140-450 10^3/uL Mean Platelet Volume 7.6 6.9-10.8 fL Neutrophils (%) (Auto) 50.1 37.0-80.0 % Lymphocytes (%) (Auto) 29.9 10.0-50.0 % Monocytes (%) (Auto) 9.8 0.0-12.0 % Eosinophils (%) (Auto) 9.3 H 0.0-7.0 % Basophils (%) (Auto) 0.9 0.0-2.0 % Neutrophils # (Auto) 2.0 1.6-8.6 10 ^3/uL Lymphocytes # (Auto) 1.2 0.4-5.4 10 ^3/uL Monocytes # (Auto) 0.4 0-1.3 10 ^3/uL Eosinophils # (Auto) 0.4 0-0.8 10 ^3/uL Basophils # (Auto) 0 0-0.2 10 ^3/uL Nucleated Red Blood Cells 0.2 % Sodium Level 141 136-145 mmol/L Potassium Level 3.8 3.5-5.1 mmol/L Chloride Level 105 98-107 mmol/L Carbon Dioxide Level 27 20-31 mmol/L Anion Gap 9 5-15 Blood Urea Nitrogen 11 9-23 mg/dL Creatinine 1.26 0.700-1.30 mg/dL Glomerular Filtration Rate Calc 65 >90 mL/min BUN/Creatinine Ratio 8.7 L 10.0-20.0 Serum Glucose 89 74-106 mg/dL Calcium Level 9.3 8.7-10.4 mg/dL Current Medications Medications (Trade) Dose Ordered Sig/Komal Route Start Time Stop Time Status Last Admin Clonidine HCl (Catapres Tablet) 0.2 mg ONCE ONCE PO 03/15/25 10:30 03/15/25 10:31 DC 03/15/25 10:55 Patient alert. Blood pressure elevated. Was given clonidine. Answering questions. Ambulating. Hemoglobin within normal limits. He has not been taking his blood pressure medication. Explained to the patient. Was told to follow up with his primary care physician. Was told to come back if there is any problem. Time of 1ST Reevaluation: 10:45 Reevaluation 1ST: Improved Time of 2ND Reevaluation: 13:39 Reevaluation 2ND: Improved Patient Education/Counseling: Diagnosis, Treatment, Prognosis Family Education/Counseling: No Family Present SEPSIS Sepsis Screen Date sepsis recognized/suspect: Mar 15, 2025 Time Sepsis recognized/suspect: 955 Recent Procedure: No On Antibiotic Therapy: No Respiratory Rate >20: No Heart Rate >90: No Temp<36 C (96.8 F) or >38.3 C: No SBP <90 or MAP <65 mmHG: No New Acute Mental Status Change: No Is the patient on CPAP, BIPAP,: No Vital Signs Date Time Temp Pulse Resp B/P (MAP) Pulse Ox O2 Delivery O2 Flow Rate FiO2 03/15/25 12:22 154/86 03/15/25 10:55 187/102 03/15/25 10:49 64 18 187/102 (130) 97 03/15/25 10:49 64 18 97 Room Air 03/15/25 09:55 98.9 78 17 180/87 96 98.9 Laboratory Tests Test 03/15/25 10:35 White Blood Count 4.0 10^3/uL (4.4-10.8) L Medications Medications Dose Ordered Sig/Komal Route Start Time Stop Time Status Last Admin Dose Admin Clonidine HCl 0.2 mg ONCE ONCE PO 03/15/25 10:30 03/15/25 10:31 DC 03/15/25 10:55 Departure 1 Departure Time of Disposition: 13:39 Impression: Primary Impression: Hypertensive emergency Disposition: 01 HOME / SELF CARE / HOMELESS Condition: Good e-Prescriptions Lisinopril (Lisinopril) 5 Mg Tab 5 MG PO DAILY for 20 Days, #20 TAB Prov: ANGELICA RICHARDS MD 03/15/25 Discharged With: Self Critical Care Note Critical Care Time?: No Stability Stability form required: No Heart Score Heart Score: Heart Score Response (Comments) Value History N/A 0 EKG N/A 0 Age N/A 0 Risk Factors N/A 0 Troponin N/A 0 Total 0 I personally scribed for ANGELICA RICHARDS MD ([email or web address]) on 03/15/25 at 10:27. Electronically submitted by Penny José ([email or web address]). ANGELICA RICHARDS MD Mar 15, 2025 10:27
[2025-03-15 10:49] VITALS: BP 187/102; PULSE 64; RESP 18; O2SAT 97
[2025-03-15 11:00] LABS: Hematocrit 43.3 % (41.0-53.0); Hemoglobin 14.6 g/dL (13.5-17.5); Mean Corpuscular Hemoglobin 28.0 pg (28.0-32.0); Mean Corpuscular Volume 82.9 fL (80.0-100.0); Nucleated Red Blood Cells % 0.2 %
[2025-03-15 11:08] LABS: Chloride 105 mmol/L (98-107); Potassium 3.8 mmol/L (3.5-5.1); Sodium 141 mmol/L (136-145)
[2025-03-15 11:09] LABS: Anion Gap 9 (5-15); Calcium 9.3 mg/dL (8.7-10.4); Carbon Dioxide 27 mmol/L (20-31)
[2025-03-15 11:14] LABS: BUN/Creatinine Ratio 8.7 (10.0-20.0); Blood Urea Nitrogen 11 mg/dL (9-23); Glucose 89 mg/dL (74-106)
[2025-03-15] MEDS ORDERED: LISI-275 PO (13:41)
== END 2025-03-15 13:59 | disposition home or self-care (01) ==
LOC: ER 09:52
DX: I16.1 Hypertensive emergency (principal); I10 Essential (primary) hypertension; Z79.01 Long term (current) use of anticoagulants; Z79.899 Other long term (current) drug therapy
CPT/HCPCS: 36415; 80048; 85025